=== PATIENT | female | born 1955 | race African-American/Black ===

== ENCOUNTER 2017-07-16 09:22 | Inpatient (IN) | payer MEDICARE, OTHER ==
[~2017-07-16] VITALS: Ht 165.1 cm; Wt 74.4 kg
[~2017-07-16 09:22] MED LIST: ALBU05 NEB; AMLO2.5T2 PO; ASPI-986 PO; BACL-141 PO; BENA40TA66 PO; CLOP75TA33 PO; CODE118S2 PO; FLUT1DIS5 INH; IPRA0.2S51 NEB; LIP40 PO; METF-516 PO; METO50TA5 PO; MIRT15TA PO; MONT10TA21 PO; OLOP2.5D EACHEYE; OMALIZUMAB IM; OMEP20TA15 PO; PRED2.5T4 PO; PREG75CA PO; PROAIR HFA INH; TIOT18CA3 INH
[2017-07-16] MEDS ORDERED: SODIUM CHLORIDE 0.9% 1,000 ML IV ONE (09:44)
[2017-07-16 09:57] LABS: BG BASE EXCESS -0.5 mmol/L (-2.0-2.0); BG CARBOXYHEMOGLOBIN 4.5 % (0.5-1.5); BG DEOXYHEMOGLOBIN 7.7 % (0.0-5.0); BG FRACTION INSPIRED OXYGEN 21; BG HCO3 ACT 25.5 mmol/L (22.0-26.0); BG METHEMOGLOBIN 0.6 % (0.0-1.5); BG OXYGEN SATURATION 91.9 % (92.0-98.5); BG OXYHEMOGLOBIN 87.2 % (94.0-97.0); BG PCO2 46.6 mmHg (35.0-45.0); BG PH 7.356 (7.350-7.450); BG PO2 64.1 mmHg (75.0-100.0); BG SAMPLE SITE LEFT BRACHIAL; BG TOTAL HEMOGLOBIN 14.8 g/dL (12.0-18.0); BG VENT MODE ROOM AIR
[2017-07-16] MEDS ORDERED: IPRATROPIUM BROMIDE (0.02%) 0.5MG/2.5ML NEB HHN STA (10:15)
[2017-07-16] MEDS ORDERED: ALBUTEROL (0.083%) 2.5MG/3ML NEB HHN STA (10:15)
[2017-07-16 10:19] LABS: HEMATOCRIT. 47.6 % (36.0-48.0); HEMOGLOBIN. 15.8 g/dL (12.0-16.0); MEAN CORPUSCULAR HEMOGLOBIN 28.1 pg (28.0-32.0); MEAN CORPUSCULAR VOLUME 84.3 fL (81.0-99.0); MEAN PLATELET VOLUME 8.6 fl (7.4-10.4); PLATELET 228 x1000/uL (130-400); RED BLOOD CELL COUNT 5.64 mill/uL (4.2-5.4); RED CELL DISTRIBUTION WIDTH 15.1 % (11.6-14.6)
[2017-07-16 10:28] LABS: INR 0.9; PARTIAL THROMBOPLASTIN TIME 22.7 sec (23.4-31.0); PROTHROMBIN TIME 9.8 sec (9.4-11.6)
[2017-07-16 10:33] LABS: BASOPHILS % 0.3 % (0.0-2.0); EOSINOPHILS % 0.6 % (0.0-5.0); LYMPHOCYTES % 15.9 % (20.0-50.0); MONOCYTES % 5.1 % (2.0-8.0); NEUTROPHILS % 78.1 % (40.0-76.0)
[2017-07-16 10:41] LABS: CARBON DIOXIDE 28 mEq/L (21-32); CHLORIDE 102 mEq/L (98-107); ETHANOL BLOOD < 10 mg/dL; TROPONIN I < 0.02 ng/mL (0.00-0.04)
[2017-07-16 12:35] LABS: CLARITY URINE CLOUDY (CLEAR); COLOR URINE YELLOW (YELLOW); GLUCOSE URINE NEGATIVE (NEGATIVE); KETONES URINE NEGATIVE (NEGATIVE); LEUKOCYTE ESTERASE URINE 2+ (NEGATIVE); NITRITE URINE POSITIVE (NEGATIVE); OCCULT BLOOD URINE 1+ (NEGATIVE); PROTEIN URINE 1+ (NEGATIVE); SPECIFIC GRAVITY URINE 1.017 (1.005-1.030); UROBILINOGEN URINE 0.2 E.U./dL (0.2-1.0)
[2017-07-16] MEDS ORDERED: CEFTRIAXONE 1 G PREMIX 50 ML IV ONE (13:15)
[2017-07-16 13:25] LABS: *AMPHETAMINES SCREEN URINE NEGATIVE (NEGATIVE); *BARBITURATES SCREEN URINE NEGATIVE (NEGATIVE); *BENZODIAZEPINES SCREEN URINE NEGATIVE (NEGATIVE); *COCAINE SCREEN URINE NEGATIVE (NEGATIVE); CANNABINOID URINE SCREEN NEGATIVE (NEGATIVE); METHADONE URINE SCREEN NEGATIVE (NEGATIVE); OPIATES URINE SCREEN NEGATIVE (NEGATIVE); PHENCYCLIDINE URINE SCREEN NEGATIVE (NEGATIVE)
[2017-07-16 14:00] VITALS: BP 162/75
[2017-07-16 16:00] VITALS: BP 137/70
[2017-07-16] MEDS ORDERED: DEXTROSE 50% WATER 50ML SYRINGE IV PRN (16:00)
[2017-07-16] MEDS: ASPIRIN 325MG TABLET PO SCH (16:39)
[2017-07-16] MEDS: PREGABALIN 75MG CAPSULE PO SCH (16:39)
[2017-07-16] MEDS ORDERED: MIRTAZAPINE 15MG TABLET PO SCH (17:00)
[2017-07-16] MEDS: BACLOFEN 10MG TABLET PO SCH (17:05)
[2017-07-16] MEDS: AMLODIPINE 2.5MG TABLET PO SCH (17:06)
[2017-07-16] MEDS: OMEPRAZOLE 20MG CAPSULE EXTENDED RELEASE PO SCH (17:31)
[2017-07-16] MEDS: BLOOD SUGAR DIAGNOSTIC STRIP TEST SCH ×2 (17:34→21:23)
[2017-07-16] MEDS: INSULIN LISPRO 100 UNITS/ML SUBCUT SCH ×2 (18:13→21:48)
[2017-07-16 20:00] VITALS: BP 124/56
[2017-07-16] MEDS ORDERED: ATORVASTATIN CALCIUM 40MG TABLET PO SCH (21:00)
[2017-07-16] MEDS: METOPROLOL TARTRATE 50MG TABLET PO SCH (21:24)
[2017-07-16] MEDS ORDERED: OLOPATADINE HCL EACHEYE SCH (22:00)
[2017-07-16] MEDS ORDERED: SALMETEROL INH SCH (22:00)
[2017-07-16] MEDS ORDERED: FLUTICASONE INH SCH (22:00)
[2017-07-16] MEDS: ALBUTEROL (0.5%) 2.5MG/0.5ML NEB HHN SCH (22:01)
[2017-07-16] MEDS: IPRATROPIUM BROMIDE (0.02%) 0.5MG/2.5ML NEB HHN SCH (22:02)
[2017-07-16 22:43] LABS: BASOPHILS % 0.4 % (0.0-2.0); EOSINOPHILS % 1.8 % (0.0-5.0); HEMATOCRIT. 37.3 % (36.0-48.0); HEMOGLOBIN. 12.4 g/dL (12.0-16.0); LYMPHOCYTES % 22.6 % (20.0-50.0); MEAN CORPUSCULAR HEMOGLOBIN 27.8 pg (28.0-32.0); MEAN CORPUSCULAR VOLUME 83.4 fL (81.0-99.0); MEAN PLATELET VOLUME 8.6 fl (7.4-10.4); NEUTROPHILS % 68.2 % (40.0-76.0); PLATELET 193 x1000/uL (130-400); RED BLOOD CELL COUNT 4.47 mill/uL (4.2-5.4); RED CELL DISTRIBUTION WIDTH 15.1 % (11.6-14.6)
[2017-07-16 23:16] LABS: CARBON DIOXIDE 28 mEq/L (21-32); CHLORIDE 110 mEq/L (98-107); TROPONIN I < 0.02 ng/mL (0.00-0.04)
[2017-07-16] MEDS: PREDNISONE 10MG TABLET PO SCH (23:19)
[2017-07-17] VITALS: BP 112/61
[2017-07-17] MEDS: ALBUTEROL (0.5%) 2.5MG/0.5ML NEB HHN SCH ×3 (02:38→14:45)
[2017-07-17] MEDS: IPRATROPIUM BROMIDE (0.02%) 0.5MG/2.5ML NEB HHN SCH ×3 (02:39→14:47)
[2017-07-17 04:00] VITALS: BP 133/74
[2017-07-17] MEDS: PREGABALIN 75MG CAPSULE PO SCH (05:32)
[2017-07-17] MEDS: BLOOD SUGAR DIAGNOSTIC STRIP TEST SCH ×2 (05:32→12:25)
[2017-07-17] MEDS ORDERED: BUDESONIDE 0.5MG/2ML NEB HHN SCH (06:00)
[2017-07-17] MEDS ORDERED: POTASSIUM CHLORIDE 20MEQ TABLET SR PO NR (06:15)
[2017-07-17 08:00] VITALS: BP 134/53
[2017-07-17] MEDS: INSULIN LISPRO 100 UNITS/ML SUBCUT SCH ×2 (08:27→12:48)
[2017-07-17] MEDS: OMEPRAZOLE 20MG CAPSULE EXTENDED RELEASE PO SCH (08:27)
[2017-07-17] MEDS ORDERED: MONTELUKAST SODIUM 10MG TABLET PO SCH (09:00)
[2017-07-17] MEDS ORDERED: NAPHAZOLINE HCL/PHENIR MAL OPHTH SOLN 15ML EACHEYE SCH (09:00)
[2017-07-17] MEDS ORDERED: CLOPIDOGREL 75MG TABLET PO SCH (09:00)
[2017-07-17] MEDS: ASPIRIN 325MG TABLET PO SCH (09:51)
[2017-07-17] MEDS: BACLOFEN 10MG TABLET PO SCH ×2 (09:52→13:37)
[2017-07-17] MEDS: PREDNISONE 10MG TABLET PO SCH (09:52)
[2017-07-17] MEDS: AMLODIPINE 2.5MG TABLET PO SCH (09:52)
[2017-07-17] MEDS: METOPROLOL TARTRATE 50MG TABLET PO SCH (09:52)
[2017-07-17 12:00] VITALS: BP 131/71
[2017-07-17] MEDS ORDERED: CEFTRIAXONE 1 G PREMIX 50 ML IV SCH (13:00)
[2017-07-17] MEDS ORDERED: LEVO500T2 PO (15:28)
[2017-07-17 16:00] VITALS: BP 128/68
[2017-07-17 16:10] VITALS: BP 128/68
== END 2017-07-17 17:05 | disposition home or self-care (01) | DRG 70 ==
LOC: ER 09:22 → 7WST 11:34 → EDBEDREQTM 11:35 → EDBEDREQ 11:35 → ENRESERV 12:22
PROVIDERS: ADMIT Family Medicine; ATTEND Family Medicine
DX: G93.41 Metabolic encephalopathy (principal); J96.00 Acute respiratory failure, unspecified whether with hypoxia or hypercapnia; N17.0 Acute kidney failure with tubular necrosis; I11.0 Hypertensive heart disease with heart failure; R65.10 Systemic inflammatory response syndrome (SIRS) of non-infectious origin without acute organ dysfunction; I50.9 Heart failure, unspecified; N39.0 Urinary tract infection, site not specified; E11.9 Type 2 diabetes mellitus without complications; E78.00 Pure hypercholesterolemia, unspecified; E78.5 Hyperlipidemia, unspecified; J45.909 Unspecified asthma, uncomplicated; Z88.5 Allergy status to narcotic agent; Z91.041 Radiographic dye allergy status; Z91.013 Allergy to seafood; Z88.8 Allergy status to other drugs, medicaments and biological substances; Z79.82 Long term (current) use of aspirin; Z79.899 Other long term (current) drug therapy; Z98.891 History of uterine scar from previous surgery
CPT/HCPCS: 36415; 36600; 51702; 70450; 71010; 80053; 80305; 81001; 82375; 82805; 82962; 83605; 83690; 83880; 84484; 85025; 85610; 85730; 87040; 87077; 87086; 87186; 93005; 94640; 94664; 96360; 96361; 99285; G0482; J0696; J1815; J7030; J7050; J7512; J7611; J7626; A4315